=== PATIENT | female | born 1995 | race Caucasian/White ===

== ENCOUNTER 2020-01-09 21:42 | Emergency (ER) | payer BC, OTHER ==
[2020-01-09 21:47] VITALS: BP 137/86; PULSE 100; TEMP 99.3
--- NOTE | 2020-01-09 22:28 | PDOC ---
*Physical Exam - Vital Signs Last Vital Signs Temp Pulse Resp BP Pulse Ox 99.3 F 100 H 18 137/86 100 01/09/20 21:45 01/09/20 21:45 01/09/20 21:45 01/09/20 21:45 01/09/20 21:45 ED Treatment Course - LABORATORY CBC & Chemistry Diagram: 01/09/20 23:05 01/09/20 23:05 Medical Decision Making - Medical Decision Making 01/09/20 22:28 Patient seen by the advanced practice provider under my supervision. Ancillary testing reviewed as necessary. I agree with plan as outlined by the advanced practice provider. Discharge - Discharge Information Problems reviewed: Yes Clinical Impression/Diagnosis: Gallstones Condition: Fair Disposition: HOME - Follow up/Referral Referrals: Dangelo Sher MD [Staff Physician] - - Patient Discharge Instructions Additional Instructions: Eat a low-fat diet. Keep well-hydrated. Take Tylenol Motrin as needed for pain. Follow broommaking supervisor's instructions for appropriate dosage. You have been given a referral for a general surgeon. Call to schedule an appointment for reevaluation for potential elective surgery. Return to the emergency department for any new or worsening symptoms. Thank you very much for choosing us to provide your emergent healthcare needs. - Post Discharge Activity
[2020-01-09] MEDS ORDERED: ACETAMINOPHEN 1000 MG/100 ML VIAL (NON FORMULARY) IVPB ONE (22:35)
[2020-01-09] MEDS ORDERED: SODIUM CHLORIDE 1,000 ML IV STA (22:35)
[2020-01-09] MEDS ORDERED: ACETAMINOPHEN INJECTION 100 ML IVPB ONE (22:43)
--- NOTE | 2020-01-09 22:43 | PDOC ---
History of Present Illness - General Chief Complaint: Pain Stated Complaint: ABD PAIN Time Seen by Provider: 01/09/20 22:15 History Source: Patient Exam Limitations: No Limitations - History of Present Illness Travel History: No Initial Comments: 01/09/20 22:40 HISTORY OF PRESENT ILLNESS: 24-year-old woman with past medical history of asthma presents emergency department for evaluation of epigastric pain which is been waxing and waning over the past 2 weeks. Patient reports pain is coming with increased frequency over the past 2 to 3 days and she has had 3 episodes of loose yellow stools over that time. Patient is unable to identify any aggrava ting or alleviating factors but reports the pain is epigastric and sharp in nature. When the pain comes occasionally it radiates to the right upper back. She denies any nausea or vomiting. Patient reports he is able to eat and drink without difficulty there is no change in pain associated with food. Patient has not taken anything for the pain as of yet. No recent travel or sick contacts. PAST MEDICAL HISTORY: Asthma SURGICAL HISTORY: Denies ALLERGIES: No known drug allergies REVIEW OF SYSTEMS General/Constitutional: Denies fever or chills. Denies weakness, weight change. HEENT: Denies change in vision. Denies ear pain or discharge. Denies sore throat. Cardiovascular: Denies chest pain or shortness of breath. Respiratory: Denies cough, wheezing, or hemoptysis. Gastrointestinal: See HPI Genitourinary: Denies dysuria, frequency, or change in urination. Musculoskeletal: Denies joint or muscle swelling or pain. Denies neck or back pain. Skin and breasts: Denies rash or easy bruising. Neurologic: Denies headache, vertigo, loss of consciousness, or loss of sensation. Psychiatric: Denies depression or anxiety. Endocrine: Denies increased thirst. Denies abnormal weight change. Hematologic/Lymphatic: Denies anemia, easy bleeding, or history of blood clots. Allergic/Immunologic: Denies hives or skin allergy. Denies latex allergy. PHYSICAL EXAM General Appearance: Well-appearing, appropriately dressed. No apparent distress, no intoxication. Respiratory/Chest: Lungs CTAB. No shortness of breath, chest tenderness, respiratory distress, accessory muscle use. No crackles, rales, rhonchi, stridor, wheezing, dullness Cardiovascular: RRR. S1, S2. No JVD, murmur, bradycardia, tachycardia. Gastrointestinal/Abdominal: Normal bowel sounds. Abdomen soft, non-distended. Epigastric tenderness with guarding. No rebound tenderness. No organomegaly, pulsatile mass, hernia, hepatomegaly, splenomegaly. Past History - Medical History Allergies/Adverse Reactions: Allergies Allergy/AdvReac Type Severity Reaction Status Date / Time No Known Allergies Allergy Verified 01/09/20 21:47 Home Medications: Ambulatory Orders Albuterol 0.083% Nebulizer Josiane [Ventolin 0.083% Nebulizer Soln -] 1 neb NEB QID #25 vial 04/14/12 Albuterol Sulfate Inhaler - [Ventolin Hfa *Inhaler*] 1 - 2 inh IH Q4H 04/14/12 predniSONE [Deltasone -] 20 mg PO DAILY #8 tablet 04/14/12 Asthma: Yes COPD: No - Immunization History Immunization Up to Date: Yes - Psycho-Social/Smoking History Smoking Status: No Smoking History: Never smoked Number of Cigarettes Smoked Daily: 0 - Substance Abuse Hx (Audit-C & DAST Scrn) How often the patient has a drink containing alcohol: Never Score: In Men: 4 or > Positive; In Women: 3 or > Positive: 0 Screen Result (Pos requires Nsg. Audit-10AR): Negative *Physical Exam - Vital Signs Last Vital Signs Temp Pulse Resp BP Pulse Ox 99.3 F 100 H 18 137/86 100 01/09/20 21:45 01/09/20 21:45 01/09/20 21:45 01/09/20 21:45 01/09/20 21:45 ED Treatment Course - LABORATORY CBC & Chemistry Diagram: 01/09/20 23:05 01/09/20 23:05 - RADIOLOGY Radiology Studies Ordered: Category Date Time Status GALLBLADDER US [US] Stat Ultrasound 01/09/20 22:36 Ordered Medical Decision Making - Medical Decision Making 01/09/20 22:42 A/P: 24-year-old woman with intermittent epigastric pain for 2 weeks with increased frequency over the past 2 days Normal active bowel sounds Epigastric tenderness with guarding present. Remainder of abdominal exam is benign No CVA tenderness elicited Differential diagnosis includes but is not limited to-pancreatitis, cholecystitis, choledocholithiasis, gastritis Labs including lipase EKG Urinalysis, urine culture, urine Normal saline 1 L IV bolus Tylenol 1 g IV Right upper quadrant ultrasound Reassess 01/10/20 00:58 Laboratory Tests 01/09/20 01/09/20 23:05 23:05 WBC 14.1 H RBC 4.16 Hgb 12.4 Hct 38.0 MCV 91.2 MCH 29.8 MCHC 32.7 RDW 13.5 Plt Count 406 MPV 8.8 Absolute Neuts (auto) 11.3 H Neutrophils % 79.9 Lymphocytes % 14.3 Monocytes % 4.9 Eosinophils % 0.6 Basophils % 0.3 Nucleated RBC % 0 Sodium 137 Potassium 4.4 Chloride 103 Carbon Dioxide 27 Anion Gap 6 L BUN 12.4 Creatinine 0.6 Est GFR (CKD-EPI)AfAm 148.90 Est GFR (CKD-EPI)NonAf 128.48 Random Glucose 149 H Calcium 9.5 Total Bilirubin 0.3 AST 77 H ALT 79 H Alkaline Phosphatase 66 Total Protein 8.1 Albumin 4.1 Lipase 167 EKG sinus rhythm with rate of 78. Normal intervals present. Normal axis. No ischemic changes noted. Right upper quadrant ultrasound is read by imaging on-call: Contracted gallbladder with mobile gallstones. No specific evidence of cholecystitis. No evidence of biliary obstruction. Limited evaluation of the pancreatic head and body is grossly unremarkable. Hepatic steatosis. Right kidney is within normal limits without hydronephrosis. Patient is tolerated p.o.'s. Discharge home to follow-up with primary doctor for continued evaluation. Recommendations for patient to see his surgeon have been given a name of surgeon has been provided. I discussed the physical exam findings, ancillary test results and final diagnoses with the patient. I answered all of the patient's questions. The patient was satisfied with the care received and felt comfortable with the discharge plan and treatment plan. The patient will call their primary care physician within 24 hours to arrange follow-up and will return to the Emergency Department with any new, persistent or worsening symptoms. Portions of this note have been documented using voice recognition software. As a result, errors may occur in the research center partner process. Effort has been made to correct all grammatical and research center partner error, but some may have been missed which may produce sporadic inaccurate research center partner or nonsensical phrases. 01/10/20 01:08 Discharge - Discharge Information Problems reviewed: Yes Clinical Impression/Diagnosis: Gallstones Condition: Fair Disposition: HOME - Admission No - Follow up/Referral Referrals: Dangelo Sher MD [Staff Physician] - - Patient Discharge Instructions Additional Instructions: Eat a low-fat diet. Keep well-hydrated. Take Tylenol Motrin as needed for pain. Follow engineering psychologist's instructions for appropriate dosage. You have been given a referral for a general surgeon. Call to schedule an appointment for reevaluation for potential elective surgery. Return to the emergency department for any new or worsening symptoms. Thank you very much for choosing us to provide your emergent healthcare needs. - Post Discharge Activity
[2020-01-09 23:28] LABS: BASO % 0.3 % (0-2.0); EOS % 0.6 % (0-4.5); HEMOGLOBIN 12.4 GM/dL (10.7-15.3); LYMPH % 14.3 % (8-40); MCH 29.8 pg (25.7-33.7); MCHC 32.7 g/dl (32.0-36.0); MEAN CELL VOLUME 91.2 fl (80-96); MEAN PLT VOLUME 8.8 fl (7.5-11.1); MONO % 4.9 % (3.8-10.2); NEUT % 79.9 % (42.8-82.8); PLATELET COUNT 406 K/MM3 (134-434); RBC 4.16 M/mm3 (3.60-5.2); RDW 13.5 % (11.6-15.6); WHITE BLOOD COUNT 14.1 K/mm3 (4.0-10.0)
[2020-01-10 00:02] LABS: ALBUMIN 4.1 g/dl (3.4-5.0); BILIRUBIN,TOTAL 0.3 mg/dL (0.2-1); BLOOD UREA NITROGEN 12.4 mg/dL (7-18); CALCIUM 9.5 mg/dL (8.5-10.1); CREATININE 0.6 mg/dL (0.55-1.3); POTASSIUM 4.4 mmol/L (3.5-5.1); TOT PROT 8.1 g/dl (6.4-8.2)
--- NOTE | 2020-01-10 12:13 | EKG ---
Test Reason : Blood Pressure : / mmHG Vent. Rate : 078 BPM Atrial Rate : 078 BPM P-R Int : 132 ms QRS Dur : 078 ms QT Int : 350 ms P-R-T Axes : 021 047 034 degrees QTc Int : 399 ms NORMAL SINUS RHYTHM WITH SINUS ARRHYTHMIA NORMAL ECG NO PREVIOUS ECGS AVAILABLE Confirmed by JOHN LUX MD ([id number]) on 01/10/2020 12:13:20 PM Referred By: Confirmed By:JOHN LUX MD
== END 2020-01-10 01:50 | disposition home or self-care (01) ==
LOC: JER 21:42
PROC: 3E0337Z Introduction of Electrolytic and Water Balance Substance into Peripheral Vein, Percutaneous Approach (ICD-10-PCS; principal; 2020-01-09)
DX: K80.20 Calculus of gallbladder without cholecystitis without obstruction (principal)
CPT/HCPCS: 36415; 76705-TC; 80053; 83690; 85025; 93005; 93010; 99285-25; J0131

== ENCOUNTER 2020-01-31 05:01 | Day surgery (SDC) | payer BC ==
[2020-01-30 13:22] VITALS: BMI 30.1
[~2020-01-31 05:01] MED LIST: BUPIVACAINE HCL/PF 0.5% (5MG/ML) 10 ML VIAL NR ONE
--- NOTE | 2020-01-31 08:32 | HP ---
History & Physical Update - History History: No Change - Physical Physical: No Change - Assessment Assessment: No Change - Plan Plan: No Change (for lap audra possible open; r/b/t/a's d/w the patient in o ffice and informed consent to be obtained pre-op; see my office notes for details.)
[2020-01-31 10:14] LABS: EPI CELLS 32 /uL (0-25.1); HYALINE CASTS 8 /uL (0-3.1); PH,URINE 5.5 (5.0-8.0); URINE APPEARANCE CLEAR; URINE BACTERIA 446 /uL (0-1359); URINE BILIRUBIN NEGATIVE (NEGATIVE); URINE COLOR ORANGE; URINE GLUCOSE (UA) NEGATIVE (NEGATIVE); URINE KETONE NEGATIVE (NEGATIVE); URINE LEUK ESTERASE 2+ (NEGATIVE); URINE NITRITE NEGATIVE (NEGATIVE); URINE PROTEIN 1+ (NEGATIVE); URINE RBC 621 /uL (0-23.9); URINE UROBILINOGEN 0.2 mg/dL (0.2-1.0); URINE WBC 177 /uL (0-25.8)
[2020-01-31] MEDS ORDERED: BENZOIN/ALOE VERA/STORAX/TOLU 58 ML BOTTLE ONE (10:25)
[2020-01-31 10:38] LABS: INR 0.94 (0.83-1.09); PROTHROMBIN TIME (PATIENT) 11.1 SEC (9.7-13.0)
[2020-01-31] MEDS ORDERED: DEXAMETHASONE SOD PHOSPHATE 4 MG/1 ML VIAL ONE (10:59)
[2020-01-31] MEDS ORDERED: LIDOCAINE HCL/PF 2% SDV 5ML VIAL ONE (10:59)
[2020-01-31] MEDS ORDERED: KETOROLAC TROMETHAMINE 30 MG/1 ML VIAL ONE (10:59)
[2020-01-31] MEDS ORDERED: fentaNYL CITRATE 250 MCG/5 ML VIAL ONE (11:00)
[2020-01-31] MEDS ORDERED: PROPOFOL 20 ML ONE (11:00)
[2020-01-31] MEDS ORDERED: ceFAZolin 2 GRAM PREMIX BAG IVPB ONE (11:00)
[2020-01-31] MEDS ORDERED: ROCURONIUM BROMIDE 50 MG/5 ML SYRINGE ONE (11:00)
[2020-01-31] MEDS ORDERED: MIDAZOLAM HCL 2 MG/2 ML SINGLE DOSE VIAL ONE (11:01)
[2020-01-31] MEDS ORDERED: BUPIVACAINE HCL/PF 0.5% (5MG/ML) 10 ML VIAL NR ONE (12:17)
[2020-01-31] MEDS ORDERED: PROMETHAZINE HCL 25 MG/1 ML VIAL IVPUSH PRN (12:33)
[2020-01-31] MEDS ORDERED: oxyCODONE HCL 5 MG TABLET PO PRN (12:33)
[2020-01-31] MEDS ORDERED: ONDANSETRON 4 MG/2 ML VIAL IVPUSH PRN (12:33)
--- NOTE | 2020-01-31 12:36 | OP ---
Operative Note - Note: Operative Date: 01/31/20 Pre-Operative Diagnosis: cholelithiasis/chronic cholecystitis Operation: laparoscopic cholecystectomy Findings: cholelithiasis Post-Operative Diagnosis: Same as Pre-op Surgeon: Dangelo Sher Landfill Gas Collection System Operator: Anna Yee Anesthesiologist/FACILITIES ADMINISTRATOR: Zeeshan Jamil Anesthesia: General Specimens Removed: gallbladder and contents Estimated Blood Loss (mls): 15
--- NOTE | 2020-01-31 13:07 | SURG ---
Surgery Port Crane Operator Note Port Crane Operator: Anna Yee PA-C Date of Service: 01/31/20 Diagnosis: cholelithiasis/chronic cholecystitis Procedure: laparoscopic cholecystectomy I was present for the entirety of the operative procedure. For further detail, please refer to operative report. Visit type - Case Type Case Type: Scheduled - Emergency Emergency Visit: No - New patient This patient is new to me today: Yes Date on this admission: 01/31/20
[2020-01-31] MEDS ORDERED: ONDANSETRON 4 MG/2 ML VIAL ONE (15:08)
[2020-01-31] MEDS ORDERED: oxyCODONE HCL 5 MG TABLET ONE (15:08)
--- NOTE | 2020-01-31 15:15 | OP ---
DATE OF OPERATION: 01/31/2020 PREOPERATIVE DIAGNOSIS: Chronic cholecystitis and cholelithiasis. POSTOPERATIVE DIAGNOSIS: Chronic cholecystitis and cholelithiasis. PROCEDURE: Laparoscopic cholecystectomy. SURGEON: Dangelo Sher MD LAMINATOR: Anna Yee PA-C ANESTHESIA: General. OPERATIVE FINDINGS: Chronic cholecystitis and cholelithiasis. The rest of the findings were unremarkable. DESCRIPTION OF PROCEDURE: The patient was placed on the operating room table in supine position. After the induction of general anesthesia, the patient's abdomen was prepped with ChloraPrep and draped in sterile fashion. Timeout was taken and then pneumoperitoneum established above the umbilicus using a Veress needle. Once 15 mm of intra-abdominal pressure was obtained, a 5-mm port was placed at the umbilicus. Additional lateral 5-mm ports and a subxiphoid 12-mm port were placed and laparoscopy carried out, and the previously noted findings were observed. The gallbladder was placed on cephalad and lateral traction, and dissection was begun at the neck of the gallbladder where the peritoneum was opened medially and laterally using blunt and sharp dissection and electrocautery. Dissection continued in the triangle of Calot where the cystic duct was identified coursing from the neck of the gallbladder distally to the common bile duct. It was dissected proximally and distally for length. Similarly, the artery was similarly identified and dissected. A critical view of safety was taken, and then the cystic duct divided proximally and distally using Endo Zuleyka after it was clipped twice proximally and distally with large hemoclips. The artery was similarly clipped and divided. Hemostasis was checked for and noted to be good and then the gallbladder was removed from the liver bed in a retrograde fashion using electrocautery. Prior to removal from the edge of the liver, hemostasis was again verified and then the gallbladder removed from the edge of the liver, placed in an Endo Catch, and brought out through the subxiphoid port. Pneumoperitoneum was reestablished, hemostasis verified again, and then the 5-mm lateral and subxiphoid ports were removed under laparoscopic vision without evidence of bleeding from the port sites. The umbilical port was removed and the pneumoperitoneum evacuated. All port sites were infiltrated with 0.5% Marcaine and the skin edges closed with 4-0 Biosyn in a subcuticular and continuous fashion. Steri-Strips and Band-Aid dressings were placed and the procedure terminated at this point and the patient aroused from general anesthesia and transferred to the postanesthesia care unit in stable condition awake and alert. ESTIMATED BLOOD LOSS: 15 mL. REPLACEMENTS: Crystalloid. DRAINS: None. SPECIMENS: Gallbladder and contents to Pathology. I, Dangelo Sher, was physically present in the operating room from the time the patient was placed on the operating room table until she was transferred to the postanesthesia care unit in my accompaniment. MD POLINA Dias/[id number] MTDD
[2020-01-31 16:10] VITALS: BP 104/54; PULSE 56; TEMP 97.8
--- NOTE | 2020-02-01 17:53 | PATH ---
Surgical Pathology Report Patient Name: HEIDY BAILEY [facility]. Rec. #: [id number] /Age/Gender: 1995 (Age: 24) / F Account: [id number] Location: [facility] SURGICAL Taken: 01/31/2020 Received: 01/31/2020 Reported: 02/01/2020 Physicians: Dangelo Sher MD Specimen(s) Received GALLBLADDER Clinical History Cholelithiasis Final Diagnosis GALLBLADDER, LAPAROSCOPIC CHOLECYSTECTOMY: CHRONIC CHOLECYSTITIS, CHOLELITHIASIS, AND FOCAL CHOLESTEROLOSIS. Electronically Signed Salena Barney M.D. Gross Description Received in formalin, labeled "gallbladder," is a 6.0 x 2.1 x 1.0 cm. gallbladder with a 0.2 cm. in length portion of cystic duct attached. The outer surface is lewis-pink with a focal defect and varies from smooth to shaggy. The lumen contains lewis, tenacious bile as well as a blunting yellow, spherical cholelith ranging from 0.1-0.3 cm in greatest dimension. The mucosa is lewis-red and focally eroded. The wall of the gallbladder measures 0.1 cm. in thickness. Advisor Consultant sections are submitted in one cassette. 01/31/2020 saudi01/31/2020
== END 2020-01-31 14:15 | disposition home or self-care (01) ==
LOC: JASU-SURG 05:01
PROVIDERS: ATTEND Surgery
PROC: 0FT44ZZ Resection of Gallbladder, Percutaneous Endoscopic Approach (ICD-10-PCS; principal; 2020-01-31 11:30)
DX: K80.10 Calculus of gallbladder with chronic cholecystitis without obstruction (principal)
CPT/HCPCS: 36415; 81003; 84703; 85610; 88304-TC; 94760